=== PATIENT | male | born 1965 | race Caucasian/White ===

== ENCOUNTER 2024-09-10 10:05 | Inpatient (IN) | payer OTHER, SELFPAY ==
[2024-09-10] VITALS (19 sets, daily range): BP systolic 91–159; BP diastolic 48–114; BMI 38.3
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
[2024-09-10 01:45] LABS: ALT (SGPT) 117 U/L (0-50); AST (SGOT) 49 U/L (17-59); Albumin 4.6 g/dl (3.5-5.0); Alkaline Phosphatase 61 U/L (38-126); Blood Urea Nitrogen 17 mg/dl (9-20); Calcium 9.8 mg/dl (8.4-10.2); Carbon Dioxide 19 mmol/L (22-30); Chloride 97 mmol/L (98-107); Glucose 176 mg/dl (70-99); Lipase 541 U/L (23-300); Potassium 3.7 mmol/L (3.5-5.1); Sodium 133 mmol/L (135-145); Total Bilirubin 0.8 mg/dl (0.2-1.3); Total Protein 7.4 g/dl (6.3-8.2); eGFR 49.63
[2024-09-10] MEDS: NSS 1000 IV (01:56)
[2024-09-10 01:57] LABS: NT-proBNP 357 pg/ml; Troponin I 0.016 ng/ml
[2024-09-10 01:59] LABS: % Basophils 0.3 % (0-2); % Eosinophils 0.5 % (0-6); % Immature Granulocytes 0.7 % (0-0.5); % Lymphocytes 17.3 % (20.5-51.1); % Monocytes 7.8 % (1.7-9.3); % Neutrophils 73.4 % (42.2-75.2); Absolute Eosinophils 0.1 10^3/uL (0-0.7); Absolute Immature Granulocytes 0.1 10^3/uL (0-0.05); Absolute Lymphocytes 2.1 10^3/uL (1.2-3.4); Absolute Monocytes 0.9 10^3/uL (0.1-0.6); Absolute Neutrophils 8.8 10^3/uL (1.4-6.5); Hematocrit 44.6 % (39.0-52.0); Hemoglobin 16.2 g/dL (13.0-18.0); Mean Corp Hgb Conc. 36.3 g/dL (33.0-37.0); Mean Corpuscular Hgb 31.7 pg (27.0-31.0); Mean Corpuscular Volume 87.3 fL (80.0-94.0); Mean Platelet Volume 9.7 fL (7.4-10.4); Nucleated Red Blood Cells % 0 % (-); Platelet Count 239 10^3/uL (130-400); Red Blood Cell Count 5.11 10^6/uL (4.70-6.10); Red Cell Dist. Width 12.2 % (11.5-14.5)
[2024-09-10 05:08] LABS: Troponin I 0.013 ng/ml
--- NOTE | 2024-09-10 08:41 | CON.CAR ---
Addendum entered and electronically signed by Fermín Gregg MD 09/10/24 09:46:
59-year-old man with history of hyperlipidemia, asthma, untreated sleep apnea, hypertension with exertional chest discomfort. Troponin is 0.013, proBNP is 357, creatinine is 1.6, ALT is 117, lipase is 541, EKG with left axis
Outpatient meds/PMH/PSH/SH/FH: Reviewed
Allergies: None
ROS: Reviewed, see below
159/114, pulse 65, respirate 17, afebrile
Head neck exam unremarkable, obese, lungs clear, no murmur, regular rate and rhythm, abdomen obese, circulation intact, no edema, musculoskeletal
ECG sinus rhythm, left axis, nonspecific ST and T changes
Troponin 0.016, 0.013, creatinine 1.6, white count 12, hemoglobin 44.6, ALT is 117, AST is 49, proBNP is 357, lipase is [address] no pulmonary embolus,, possible esophagitis, some coronary artery calcifications presents
Impression:
Chest discomfort with detectable troponin
Hypertension, possibly accelerated
Hypercholesterolemia
Untreated sleep apnea
Suspected fatty liver
Hyperglycemia
Plan:
He presents with exertional chest discomfort, high risk profile, coronary artery calcification, and a detectable troponin without acute EKG changes. While all could be related to accelerated and poorly treated hypertension, concern for ACS.
Options reviewed, I favor cardiac catheterization to directly define coronary anatomy with PCI if appropriate.
Importance of risk factor modification stressed. Risks and benefits of catheterization reviewed.
Will check right upper quadrant ultrasound and nocturnal pulse oximetry.
Further management can be based upon the results of his catheterization.
Original Note:
Consultation
Consultation Request
Date/Time Consultation Requested: 09/10/24
Date/Time Consultation Performed: 09/10/24
Requesting Provider: Dr. Esparza in the ER
Performing Provider: Dr. MU Gregg
Reason for Consultation: Chest pain
Medical History
-
History of Present Illness:
Patient came to [facility] very early this morning with chest pain and cardiology is now consulted. 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 The
pain lasted 12+ hours and seemed to feel better when he took a walk, but never completely improved. Patient finished his shift and went home and drank 2 beers and then took a Viagra to be intimate with his and the chest pain became more intense
described as a crushing sensation that again radiated down his right arm. Patient felt a sense of doom and told his to call 911. Chest pain eventually improved in the ER. Paramedics gave patient aspirin, but no NTG SL due to PDE5 inhibitor use.
Patient reports pain came back around 0630 while in the ER and after 30 minutes his pain resolved. Patient has never had pain like that before. Patient reports LIMA over the last several weeks as a new symptom. Patient is adopted and FH in unknown.
Denies smoking. He had an unremarkable stress test in 2006. He does not have regular physicals with his PCP. LDL was 207 in 2021 and PCP recommended statin, but patient declined and wanted to try diet changes and recheck labs which never happened.
LFTs have also been previously elevated and previous outpatient hepatitis testing was negative on my review of [facility] records.
PMH:
Psoriasis
Past Medical History
Past Medical History: Other (in HPI)
Past Surgical History: Other (previous skin graft)
Social History
Tobacco: Non-Smoker
Alcohol: Occasional (2 drinks every other weekend when he isn't working)
Drug: None
Personal:
Living: With Family
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
Family History
Family History: Adopted
Allergies / Home Medications
Allergy/AdvReac Type Severity Reaction Status Date / Time
No Known Allergies Allergy Verified 09/10/24 01:05
�Medication �Instructions �Recorded �Confirmed �Type
multivitamin with folic acid 400 1 tab PO DAILY Supplement 07/24/20 09/27/20 History
mcg tablet (Tab-A-Aaron)
acetaminophen 325 mg tablet 650 mg (2 x 325 mg) PO Q4HPRN PRN 10/01/20 Rx
fever >/= 100.4F, SHEA,mild pain
albuterol sulfate 90 mcg/actuation 2 puff inhalation R Q4HPRN PRN SOB 10/01/20 Rx
aerosol inhaler or wheezing 30 days ##1
aspirin 81 mg tablet,delayed 81 mg PO DAILY 30 days #30 tabs 10/01/20 Rx
release
benzonatate 100 mg capsule 200 mg (2 x 100 mg) PO TIDPRN PRN 10/01/20 Rx
cough 7 days #21 caps
budesonide-formoterol HFA 160 2 puff inhalation R BID 30 days ##1 10/01/20 Rx
mcg-4.5 mcg/actuation aerosol
inhaler (Symbicort)
codeine 10 mg-guaifenesin 100 mg/5 10 ml PO Q4HPRN PRN cough if 10/01/20 Rx
mL oral liquid (Guaiatussin AC) tessalon fails 5 days #300 mL
dexamethasone 2 mg tablet 6 mg (3 x 2 mg) PO DAILY 5 days 10/01/20 Rx
#15 tabs
famotidine 20 mg tablet 20 mg PO BID 30 days #60 tabs 10/01/20 Rx
Review of Systems
-
History Source: Patient
All other systems: Negative unless noted
Physical Exam
Vital Signs
Temp Pulse Resp BP Pulse Ox
97.6 F 67 17 114/85 93
09/10/24 01:05 09/10/24 07:22 09/10/24 07:22 09/10/24 07:22 09/10/24 07:22
GEN: NAD. AAOx3
HEENT: EOMI, MMM
LUNGS: RA. CTA B/L, no wheeze
CV: SR on tele. Reg, S1/S2, no murmur
ABD: soft, BS+, NT, ND
EXT: No clubbing, cyanosis, lesions or edema B/L
NEURO: Gross non-focal
SKIN: Warm, dry and pink. No rash
Lab Results
09/10/24 01:49
09/10/24 01:26
Troponin I 0.013 ng/ml 09/10/24 04:36
Euf-M-Bwyhprnouxp Pept 357 pg/ml 09/10/24 01:26
Impression / Plan
-
PCP: Dr. Goldsmith
Cardiology: None prior to admission
Impression:
Chest pain
Coronary calcification on CT chest
SHIRIN
Elevated ALT
Hyperglycemia
Hyponatremia
HTN
Untreated hyperlipidemia
Psoriasis
Fatty liver
Echo 09/10/24: Study pending
Plan:
-Patient came to [facility] very early this morning with chest pain and cardiology is now consulted. 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 The
pain lasted 12+ hours and seemed to feel better when he took a walk, but never completely improved. Patient finished his shift and went home and drank 2 beers and then took a Viagra to be intimate with his and the chest pain became more intense
described as a crushing sensation that again radiated down his right arm. Patient felt a sense of doom and told his to call 911. Chest pain eventually improved in the ER. Paramedics gave patient aspirin, but no NTG SL due to PDE5 inhibitor use.
Patient reports pain came back around 0630 while in the ER and after 30 minutes his pain resolved. Patient has never had pain like that before. Patient reports LIMA over the last several weeks as a new symptom. Patient is adopted and FH in unknown.
Denies smoking. He had an unremarkable stress test in 2006. He does not have regular physicals with his PCP. LDL was 207 in 2021 and PCP recommended statin, but patient declined and wanted to try diet changes and recheck labs which never happened.
LFTs have also been previously elevated and previous outpatient hepatitis testing was negative on my review of [facility] records.
-ECG reviewed by me with nonspecific inferior ST changes
-Initial Troponin 0.016 and then 0.013. Last Troponin was a 0436 AM and patient with recurrent chest pain at 0630 so will check another Troponin now
-Check echo, I called echo dept to coordinate an expedited echo
-Cre was 1.6 on admission. Patient worked a 12 hour shift and describes drinking a single 'Big Gulp' size container of water all day. Patient was given 1 L NSS in the ER. Recheck BMP with next Troponin draw. No known h/o CKD.
-Check CVE, ordered by me. LDL was 207 in 2021 on review of [facility] records and patient declined statin at that time in lieu of diet changes and a plan to recheck lipids in 2 months which never happened as far as I can tell looking through [facility].
-Aspirin 324 mg PO given by EMS prior to ER
-Start Heparin gtt now, ordered by me
-Hyperglycemia without known h/o DM 2. Check HgbA1c, ordered by me
-BP 133/105 and he has had HTN BP readings as an outpatient in the past as well. Will give Lopressor 25 mg PO x1 now and he will likely need new antihypertensive therapy started this admission
-Patient with h/o elevated LFTs previously worked up by PCP as an outpatient and he was negative for Hepatitis C in 2016. Recheck LFTs in AM. Could be a component of fatty liver and would consider abdominal u/s inpatient vs outpatient. The liver
was diffusely hypoattenuating on CTA of chest this morning.
[2024-09-10] MEDS: LOPRESSOR 25 MG PO (09:27)
[2024-09-10] MEDS: HEPARIN 25000 UNITS/250 ML IV (09:36)
[2024-09-10 09:40] LABS: Blood Urea Nitrogen 19 mg/dl (9-20); Calcium 9.6 mg/dl (8.4-10.2); Carbon Dioxide 21 mmol/L (22-30); Chloride 100 mmol/L (98-107); Glucose 136 mg/dl (70-99); HDL Cholesterol 55 mg/dl; LDL Cholesterol, Calculated 177 mg/dl; Potassium 3.8 mmol/L (3.5-5.1); Sodium 134 mmol/L (135-145); Total Cholesterol 288 mg/dl (50-199); Triglyceride 280 mg/dl (10-149); Very Low Density Lipoprotein 56 mg/dl (0-30); eGFR 58.26
[2024-09-10 09:45] LABS: APTT 27.5 Sec (23.4-35.0)
[2024-09-10 09:50] LABS: Troponin I 0.013 ng/ml
--- NOTE | 2024-09-10 10:41 | CARDSERVLU ---
Echocardiogram with Lumason completed after protocol screening completed. Allergies verified.
Patent IV site: ___existing heparin infusion, paused very briefly for test__
IV site flushed with 0.9% NaCl pre and post administration.
Diluted bolus method utilized to enhance visualization of ventricular dutton.
Total volume given: __4.5__ mL in divided doses under direction echosonographer.
Patient tolerated all procedures well without complications.
--- NOTE | 2024-09-10 15:48 | W.PN.UPDATE ---
Update Note
Progress Note Update
Updated patient and in the room. Repeat labs show creatinine 1.4. Given additional dye load with CTA of the chest this morning we will hold off on cardiac cath today. Patient was given a box lunch and cholesterol-lowering diet was ordered.
He will be n.p.o. in the morning for cardiac cath in the a.m. pending labs.
[2024-09-10 15:59] LABS: INR 0.98; PT 13.3 Sec (11.4-14.6)
[2024-09-10 16:00] LABS: APTT 56.2 Sec (23.4-35.0)
[2024-09-10] MEDS: LIPITOR 80 MG PO (18:12)
--- NOTE | 2024-09-10 18:25 | PTCARENOTE ---
Patient admitted from the ED with ACS/CP. IV heparin infusing at 1700 units/hr, patient denies any chest pain at this time, stating it 'comes and goes'. SR on the monitor, nursing admission assessment completed. Reviewed plan of care, call yao in
reach.
--- NOTE | 2024-09-10 22:44 | PTCARENOTE ---
Received patient at change of shift. SR on the monitor, HR in the 70s. Heparin running as per protocol, see documentation. No complaints from pt at this time, call ayo within reach.
[2024-09-10 22:57] LABS: APTT 45.7 Sec (23.4-35.0)
[2024-09-11] VITALS (13 sets, daily range): BP systolic 112–158; BP diastolic 72–106
[2024-09-11] MEDS: HEPARIN 25000 UNITS/250 ML IV (01:12)
[2024-09-11 05:12] LABS: Hemoglobin 15.1 g/dL (13.0-18.0); Mean Corp Hgb Conc. 35.1 g/dL (33.0-37.0); Mean Corpuscular Hgb 31.4 pg (27.0-31.0); Mean Corpuscular Volume 89.4 fL (80.0-94.0); Mean Platelet Volume 9.7 fL (7.4-10.4); Platelet Count 217 10^3/uL (130-400); Red Blood Cell Count 4.81 10^6/uL (4.70-6.10); Red Cell Dist. Width 12.3 % (11.5-14.5); White Blood Cell Count 8.8 10^3/uL (4.8-10.8)
[2024-09-11 05:23] LABS: APTT 59.5 Sec (23.4-35.0)
[2024-09-11 05:40] LABS: ALT (SGPT) 97 U/L (0-50); AST (SGOT) 51 U/L (17-59); Alkaline Phosphatase 74 U/L (38-126); Blood Urea Nitrogen 25 mg/dl (9-20); Calcium 9.1 mg/dl (8.4-10.2); Carbon Dioxide 21 mmol/L (22-30); Chloride 104 mmol/L (98-107); Estimated Creatinine Clearance 99 ml/min; Glucose 159 mg/dl (70-99); Potassium 3.9 mmol/L (3.5-5.1); Sodium 136 mmol/L (135-145); Total Bilirubin 0.5 mg/dl (0.2-1.3); Total Protein 6.6 g/dl (6.3-8.2); eGFR > 60.00
--- NOTE | 2024-09-11 07:13 | ITS.CL.CATH ---
[facility] - Catheterization
Cardiac Catheterization
Procedure Report:
LEFT HEART CATHETERIZATION
Date of Procedure: September 11, 2024
Referring: emergency department
PROCEDURES:
1. Left heart catheterization, coronary angiogram.
2. Ultrasound-guided access
INDICATION: Concern for NSTEMI
ACCESS: Right common femoral artery, 6 1 sheath, under ultrasound guidance, using the micropuncture kit.
We had also attempted access into the right radial artery and the right ulnar artery however we continue to struggle with getting the ladder up smoothly. With the ulnar artery we were able to advance the sheath however I believe given significant
spasm, we could not get any blood return and therefore this access was aborted.
Ultrasound was utilized for vascular access. The radial, ulnar and femoral artery were visualized under ultrasound, and the vessels were patent and pulsatile. Images were stored permanently in the patient's medical record. Under direct ultrasound
guidance, a 6 Hungarian sheath was inserted into the ulnar and common femoral artery using a micropuncture kit through a modified Seldinger technique.
HEMODYNAMICS : (mmHg)
AO (s/d) : 156/110
LV (s/d) : 164/16
LVEDP : 26
CORONARY FINDINGS
DOMINANCE: Left
LEFT MAIN: The left main artery is a large-caliber vessel which gives rise to the left anterior descending artery and the left circumflex artery. There is minimal luminal irregularities.
LEFT ANTERIOR DESCENDING: The left anterior descending artery is a medium caliber vessel which gives rise to 1 major diagonal branch as it courses to the anterior interventricular groove and wraps around the apex. Proximal LAD has 40-50% stenosis
with otherwise diffuse mild atherosclerotic plaque without any focal obstructive disease.
CIRCUMFLEX: The left circumflex artery is a medium caliber vessel which gives rise to 1 major branching obtuse marginal branch. Mid left circumflex has an eccentric 40% stenosis. There is mild diffuse atherosclerotic plaque otherwise
RIGHT CORONARY ARTERY: The right coronary artery is a small caliber, nondominant vessel with minimal luminal irregularities.
SEDATION: 65 minutes of procedural sedation was utilized. An independent medical aides teacher was present to assist with and help manage the patient's level of consciousness and physiologic status.
RADIATION SUMMARY: Fluoro Time (min): 7.0, Dose (mGy): 518.27, DAP (Gy.cm2) : 43.19
Closure Device: 6 Hungarian Angio-Seal over the right common femoral artery. Radial band was placed over the right ulnar artery with 10 cc of air.
CONCLUSIONS
1. Mild to moderate coronary artery disease with no obstructive coronary artery disease.
2. Left dominant circulation.
3. Significantly elevated LVEDP in the setting of significant systemic hypertension which is poorly controlled.
RECOMMENDATIONS
1. Bedrest per protocol. Wean radioman per protocol.
2. Optimization of goal-directed medical therapy for mild to moderate coronary artery disease.
3. Aggressive management of cardiovascular risk factors.
4. Referral for outpatient cardiac rehab.
Copy to: Fermín Gregg MD
Rosalie Yates MD, [facility], [facility]
[2024-09-11] MEDS: TOPROL XL 12.5 MG PO (08:22)
[2024-09-11] MEDS: DIOVAN 80 MG PO (08:22)
[2024-09-11] MEDS: LOW STRENGTH ASPIRIN 81 MG PO (08:24)
--- NOTE | 2024-09-11 09:19 | PTCARENOTE ---
Received patient this morning resting in bed, IV heparin infusing at 2100 units/hr. Patient aware that he is NPO for cardiac cath, given AM meds with a sip of water, denies any pain presently, stating 'it comes and goes'. SR on the monitor, VSS
--- NOTE | 2024-09-11 13:51 | CM ---
CM following for DC planning needs.
Met w/ patient and spouse at bedside to complete initial assessment.
Pt. resides w/ spouse in a private, 3 story home .Functionally, patient is indep. at baseline w/ ADLs, mobility without the use of any assisted device.
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
Pt. has RX plan and uses [facility] in [place].
DC plan is for home once stable, no needs antic.
CM to follow.
--- NOTE | 2024-09-11 15:46 | W.PN.UPDATE ---
Update Note
Progress Note Update
CTSP for CP while supine in bed after returning from cardiac cath. ECG reviewed by me with SR and no acute ischemic changes. Cardiac cath showed moderate nonobstructive CAD and elevated LVEDP. Patient was started on nitro drip to help with BP
management while supine and recovering from femoral access. Patient noted to be tachypneic with normal pulse ox on 2L NC. Patient agreeable to a trial of Ativan and will start with 0.5 mg IV x 1 now. Patient is allowed to chew on ice chips ad
jem. Hold off on Lasix until bed rest is over which is closer to 1745. Cut Nitro gtt dose from 35 mcg to 20 mcg. 31 min critical care with face to face and coordination of care.
[2024-09-11] MEDS: NSS 1000 IV (16:04)
[2024-09-11] MEDS: PROTONIX IV 40 MG IV (16:07)
[2024-09-11] MEDS: ATIVAN 0.5 MG IV ×2 (16:08→17:21)
[2024-09-11] MEDS: NSS (PRESERVATIVE FREE) 10 ML IV (16:08)
[2024-09-11] MEDS: NSS (PRESERVATIVE FREE) 0.25 ML IV ×2 (16:09→17:22)
--- NOTE | 2024-09-11 16:35 | PTCARENOTE ---
Patient returned from laboratory secretary at 1500. Vascular band in place right wrist which was dry and intact. Dressing right groin is dry and intact. Strong pulses palpable R DP and R radial. Lying flat in bed, reinforced post cath activity restrictions. IV
NTG infusing at 40mcg/min LAC. SR on the monitor, SBP in the 140's. Patient began to complain of chest pain he stated was across his chest between his nipples, rated 6/10. Breathing heavy and appeared very anxious. Stating he had a headache, felt
nauseated and 'lousy'. Notified Julian Salazar in the laboratory secretary, EKG done which was unchanged. Teresita Dowd PA in to see the patient. Dr. Yates on the unit and instructed to decrease NTG gtt back to 20mcg/min. Patient given post cath IV fluids at 171ml/hr, IV
protonix and IV ativan as ordered. Appears calmer now, following post cath restrictions as instructed, at the bedside.
[2024-09-11] MEDS: LIPITOR 80 MG PO (17:22)
[2024-09-11] MEDS: NORVASC 5 MG PO (17:22)
--- NOTE | 2024-09-11 18:05 | PTCARENOTE ---
Patient was still feeling very anxious, restless in the bed, given second dose of IV ativan 0.5mg IV. Appears much more comfortable now, right groin dressing is dry and intact, vascular band removed from right wrist and the dressing is dry and
intact. Tapering IV NTG gtt which is now at 5mcg/min, BP 124/81- given PO dose of norvasc. Will give order IV lasix when the patient is permitted oob at 1840.
[2024-09-11] MEDS: LASIX 20 MG IV (19:45)
[2024-09-11] MEDS: TYLENOL 650 MG PO (20:18)
--- NOTE | 2024-09-11 20:38 | PTCARENOTE ---
pt received at change of shift, pt seen and assessed with at bedside. AOx3, tele reading NSR. R wrist c/d/i. R groin c/d/i. complaining of 7/10 pain at R groin site. Site soft and nontender. PRN tylenol given. Continuing to assess pain at this
time. POC discussed with patient. Pt and verbalize understanding. Call yao within reach. Continuing to monitor at this time.
[2024-09-12 02:58] VITALS: BP 149/90
[2024-09-12 02:59] VITALS: BP 149/90
[2024-09-12 03:23] LABS: Hematocrit 41.6 % (39.0-52.0); Hemoglobin 14.7 g/dL (13.0-18.0); Mean Corp Hgb Conc. 35.3 g/dL (33.0-37.0); Mean Corpuscular Hgb 31.6 pg (27.0-31.0); Mean Corpuscular Volume 89.5 fL (80.0-94.0); Mean Platelet Volume 9.5 fL (7.4-10.4); Platelet Count 220 10^3/uL (130-400); Red Blood Cell Count 4.65 10^6/uL (4.70-6.10); Red Cell Dist. Width 12.4 % (11.5-14.5); White Blood Cell Count 7.7 10^3/uL (4.8-10.8)
[2024-09-12 03:56] LABS: Blood Urea Nitrogen 19 mg/dl (9-20); Calcium 9.2 mg/dl (8.4-10.2); Carbon Dioxide 20 mmol/L (22-30); Chloride 104 mmol/L (98-107); Estimated Creatinine Clearance 110 ml/min; Glucose 178 mg/dl (70-99); Potassium 4.1 mmol/L (3.5-5.1); Sodium 136 mmol/L (135-145); eGFR > 60.00
--- NOTE | 2024-09-12 07:38 | W.PN.CARDCBS ---
Addendum entered and electronically signed by Etta Mosher DO 09/12/24 17:02:
I saw and examined the patient.
The Rn Case Manager's note was reviewed and I agree with the note.
Comment: Patient seen and examined. Lying supine feeling comfortable without complaints. Denies chest pain, pressure or shortness of breath. No lightheadedness. No groin or hand pain.
General: No acute distress, AAOX3
Heart: Regular,positive S1/S2, No murmur
Lungs: CTA b/l, negative wheezes/rales/rhonchi
Abd: Positive BS, NT/ND, neg rebound/rigidity/guarding
Ext: No edema. Right radial site intact with some mild hand swelling. +2 radial pulse. Right groin without hematoma or bruit.
Neuro: nonfocal
Plan:
Chest pain following use of PDE 5 inhibitor with serially normal troponin status post cardiac catheterization with mild to moderate obstructive disease not requiring intervention
-Reviewed the need for aggressive risk factor reduction
-Blood pressures remain elevated. Will add Aldactone 25 mg daily. Continue amlodipine and valsartan started this admission. Goal normotension
-Continue new atorvastatin 80mg daily with plan for repeat lipid profile in 3 months. LDL 177 on 09/10/2024 without medications. Goal LDL less than 70 mg/dL
-New diagnosis of type 2 diabetes mellitus, hemoglobin A1c 7%. Patient was seen by prosthodontist/educator and starting metformin also given information on blood sugar monitoring/low glycemic index diet with need for follow-up with his primary care
physician. Goal normoglycemia.
-Cont aspirin 81 mg daily
-HgbA1c 7% and DM educator and GOLF CART MECHANIC consulted. They are going to start metformin and give patient a gucometer. Patient will also need to follow up with his PCP.
-Hepatic steatosis seen on abdominal U/S on 09/10/2024. Patient has already expressed a desire to lose weight through diet and exercise
-Patient with h/o elevated LFTs previously worked up by PCP as an outpatient and he was negative for Hepatitis C in 2016.
-D/C to home 09/12/24
Original Note:
Today's Communication / Plan
-
New to amlodipine and valsartan
Not sure if patient should go home on Lasix
New to atorvastatin
Newly diagnosed DM 2 and prosthodontist/educator/GOLF CART MECHANIC consulted
D/C to home this afternoon
Impression / Plan
-
PCP: Dr. Goldsmith
Cardiology: None prior to admission
Impression:
Mild to moderate nonobstructive CAD by cardiac cath 09/11/2024
Chest pain
Coronary calcification on CT chest
SHIRIN
Elevated ALT
Hyperglycemia
Hyponatremia
HTN
Untreated hyperlipidemia
Psoriasis
Fatty liver
Newly diagnosed DM 2
Echo 09/10/24: EF 60 to 65%, normal LV size and function without WMA, normal RV size and function, no significant valvular abnormalities, no pericardial effusion
Plan:
-Patient with CP on admission after using PDE 5 inhibitor and attempting intercourse, Troponins were serially normal. Recurrent CP in the ER. Cardiac cath deferred due to SHIRIN and then ultimately found to have mild to moderate nonobstructive CAD by
cath 09/11/24
-Overnight events post-cath noted, patient with agitation and right groin pain, but all have resolved in the AM. Hgb is stable at 14.7 in the right groin is soft and nontender without ecchymosis on my examination 09/12/2024.
-BP 136/96 prior to morning meds on 09/12/2024 AM.
-Patient is new to amlodipine 5 mg daily
-Patient is new to valsartan 80 mg daily
-LVEDP was 26 at time of cath 09/11/2024 and patient was given Lasix 20 mg IV x 1. Daily weight is not being checked. I&O not being followed. Patient was not taking a diuretic prior to admission. Patient with SHIRIN on admission. Not sure if patient
should be d/c'd to home on a diuretic
-LDL 177 and new to atorvastatin 80 mg daily
-Cont aspirin 81 mg daily
-HgbA1c 7% and DM educator and GOLF CART MECHANIC consulted. They are going to start metformin and give patient a gucometer. Patient will also need to follow up with his PCP.
-Hepatic steatosis seen on abdominal U/S on 09/10/2024. Patient has already expressed a desire to lose weight through diet and exercise
-Patient with h/o elevated LFTs previously worked up by PCP as an outpatient and he was negative for Hepatitis C in 2015.
-D/C to home 09/12/24
HPI: [facility] with chest pain and cardiology is now consulted. 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
The pain lasted 12+ hours and seemed to feel better when he took a walk, but never completely improved. Patient finished his shift and went home and drank 2 beers and then took a Viagra to be intimate with his and the chest pain became more
intense described as a crushing sensation that again radiated down his right arm. Patient felt a sense of doom and told his to call 911. Chest pain eventually improved in the ER. Paramedics gave patient aspirin, but no NTG SL due to PDE5
inhibitor use. Patient reports pain came back around 0630 while in the ER and after 30 minutes his pain resolved. Patient has never had pain like that before. Patient reports LIMA over the last several weeks as a new symptom. Patient is adopted and
FH in unknown. Denies smoking. He had an unremarkable stress test in 2006. He does not have regular physicals with his PCP. LDL was 207 in 2021 and PCP recommended statin, but patient declined and wanted to try diet changes and recheck labs which
never happened. LFTs have also been previously elevated and previous outpatient hepatitis testing was negative on my review of [facility] records.
Progress Note - Wildlife Photographer
Subjective
Date of Service: September 12, 2024
Feeling less anxious today
Objective
Labs:
09/12/24 03:04
09/12/24 03:04
Labs
Hgb 14.7 g/dL (13.0-18.0) 09/12/24 03:04
Hct 41.6 % (39.0-52.0) 09/12/24 03:04
Plt Count 220 10^3/uL (130-400) 09/12/24 03:04
PT 13.3 Sec (11.4-14.6) 09/10/24 15:42
INR 0.98 09/10/24 15:42
APTT Cancelled 09/11/24 11:45
Sodium 136 mmol/L (135-145) 09/12/24 03:04
Potassium 4.1 mmol/L (3.5-5.1) 09/12/24 03:04
BUN 19 mg/dl (9-20) 09/12/24 03:04
Creatinine 0.9 mg/dL (0.7-1.3) 09/12/24 03:04
Glucose 178 mg/dl (70-99) H 09/12/24 03:04
Troponins
09/10/24 09/10/24 09/10/24
01:26 04:36 09:11
Troponin I 0.016 0.013 0.013
Vital Signs and I&O:
Vital Signs
Temp Pulse Resp BP Pulse Ox
97.4 F 70 20 149/90 95
09/12/24 02:59 09/12/24 02:59 09/12/24 02:59 09/12/24 02:59 09/12/24 02:59
Vital Signs
Temp Pulse Resp BP Pulse Ox
97.4 F 70 20 149/90 95
09/12/24 02:59 09/12/24 02:59 09/12/24 02:59 09/12/24 02:59 09/12/24 02:59
Intake & Output
09/10/24 09/11/24 09/12/24 09/13/24
06:59 06:59 06:59 06:59
Intake Total 960 / 960 1180 / 1180
Output Total 300 / 300
Balance 960 / 960 880 / 880
Physical Exam
Physical Exam
GEN: NAD. AAOx3
HEENT: EOMI, MMM
LUNGS: RA. No wheeze
CV: SR on tele.
ABD: Obese, ND
EXT: Right ulnar dressing removed by me with underlying ecchymosis, but no hematoma or bruit. Right femoral dressing removed by me and groin is soft without evidence of hematoma, ecchymosis or tenderness.
NEURO: Gross non-focal
SKIN: Warm, dry and pink. No rash
[2024-09-12 08:08] VITALS: BP 136/96
[2024-09-12] MEDS: NORVASC 5 MG PO (08:15)
[2024-09-12] MEDS: LOW STRENGTH ASPIRIN 81 MG PO (08:15)
[2024-09-12] MEDS: DIOVAN 80 MG PO (08:15)
[2024-09-12] MEDS: LASIX 20 MG IV (08:15)
[2024-09-12 11:22] VITALS: BP 151/93
--- NOTE | 2024-09-12 12:03 | PTCARENOTE ---
09/12/2024 DIABETES EDUCATION
I met with Imtiaz and his to review diabetes management. Imtiaz is newly diagnosed with T2D.
I educated on physiology of T2D, managing with medications, monitoring BG, nutrition, activity, sleep and managing stress.
Imtiaz states his mother and pet have diabetes, is familiar with checking BG. I educated and reviewed using [employer] glucometer, member acknowledged understanding with a self demonstration of BS. Fasting BS 143 result reviewed with him.
Discussed normal target glucose ranges and a monitoring schedule of BID as recommended by [employer] on DM team. I reinforced signs of hyperglycemia, hypoglycemia; BS parameters and recommended HbA1c goals. Member has DM management booklet, states he
thinks he will be d/c with oral DM medication. Encouraged Imtiaz to follow up with his PCP for post d/c appointment and to monitor medication and blood glucose levels. Requested prescription sent to pharmacy for test strips and lancets for back up
SMBG. Information provided on the outpatient DSME program. Imtiaz and spouse verbalized understanding.
--- NOTE | 2024-09-12 12:25 | PN.DE.MGMTRT ---
Insulin Management
- -
09/12/2024 Diabetes Management Consult
Patient admitted 09/10 with chest pain. PMH HLD, Sleep apnea, HTN asthma. Prior to admission was taking no medication for diabetes. A1C 7%, cr .9, eGFR > 60.
Patient is awake and alert resting in bed. Able to discuss diabetes plan. at bedside. States he was told he has pre diabetes. Discussed with patient A1C of 7% indicates diabetes.
Discussed the importance of glucose control. Patient states: 'I just need to lose 30 pounds'. Discussed starting metformin, described action and minimal side effects with low dose. He states he will think about it. Also recommend he test his
glucose BID in pattern provided so he can report to his primary doctor. HAVEN Gonzalez has provided patient with meter and instructed on testing procedure and target glucose ranges.
My number provided for further questions.
RX for metformin 500 mg BID to start tomorrow and test strips and lancets in ambulatory orders.
Diabetes History
- -
Type of Diabetes: 2
Pre-Admission Diabetes Regimen
09/12/24
03:04
Creatinine 0.9
Lab Results
Hemoglobin A1c 7.0 % (4.0-5.6) H 09/10/24 09:11
Insulin Pump Settings
IP Diabetes Regimen
09/12/24
03:04
Glucose 178 H
Meal type: Lunch
Patient Education
[2024-09-12 14:54] VITALS: BP 144/98
[2024-09-12 14:55] VITALS: BP 144/98
--- NOTE | 2024-09-12 15:28 | PTCARENOTE ---
Pt received this am with no c/o of any chest pain or sob. Right groin and radial cath sites open to air and WNL. OOB ad jem, gait steady. Discharged to home with his . Discharge instructions given and reviewed with good understanding and all
questions answered.
== END 2024-09-12 16:45 | disposition home or self-care (01) | DRG 287 ==
LOC: IVU 10:05
PROVIDERS: Emergency Medicine; Internal Medicine Interventional Cardiology; Nurse Practitioner Adult Health; Physician Assistant Medical; ADMITTING PHYSICIAN Internal Medicine Cardiovascular Disease; EMERGENCY PHYSICIAN Emergency Medicine; FAMILY PHYSICIAN Internal Medicine
PROC: B211YZZ Fluoroscopy of Multiple Coronary Arteries using Other Contrast (ICD-10-PCS; 2024-09-11)
PROC: 4A023N7 Measurement of Cardiac Sampling and Pressure, Left Heart, Percutaneous Approach (ICD-10-PCS; 2024-09-11)
DX: I25.10 Atherosclerotic heart disease of native coronary artery without angina pectoris (principal); E87.1 Hypo-osmolality and hyponatremia; N17.9 Acute kidney failure, unspecified; I10 Essential (primary) hypertension; G47.30 Sleep apnea, unspecified; E78.00 Pure hypercholesterolemia, unspecified; K76.0 Fatty (change of) liver, not elsewhere classified; L40.9 Psoriasis, unspecified; E11.65 Type 2 diabetes mellitus with hyperglycemia; Z72.0 Tobacco use; Z79.899 Other long term (current) drug therapy; Z79.82 Long term (current) use of aspirin
CPT/HCPCS: 71275; 76700; 76937; 80048; 80053; 80061; 83036; 83690; 83880; 84484; 85025; 85027; 85610; 85730; 93005; 93306; 93458; 94762; 96360; 99152; 99153; 99285; C1760; C1894; Q9950; Q9967